=== PATIENT | male | born 1960 | race African-American/Black ===

== ENCOUNTER 2019-04-15 03:20 | Emergency (ER) | payer OTHER ==
[~2019-04-15] VITALS: Ht 182.9 cm; Wt 94.3 kg
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
[2019-04-15] MEDS ORDERED: KETOROLAC TROMETHAMINE INJ 60 MG/2 ML VIAL IM ONE ×2 (04:00→04:01)
[2019-04-15] MEDS ORDERED: IBUPROFEN 600 MG TABLET PO ONE ×2 (04:04→04:30)
--- NOTE | 2019-04-15 05:47 | NUR ---
Patient discharged to home in stable condition. rx and Written and verbal after care instructions given. Patient verbalizes understanding of instruction.
[2019-04-15 05:48] VITALS: BP 127/68
== END 2019-04-15 05:51 | disposition home or self-care (01) ==
LOC: ER 03:28
DX: M54.9 Dorsalgia, unspecified (principal); Z85.46 Personal history of malignant neoplasm of prostate; V49.49XA Driver injured in collision with other motor vehicles in traffic accident, initial encounter; Y93.89 Activity, other specified; Y92.413 State road as the place of occurrence of the external cause; Y99.8 Other external cause status
CPT/HCPCS: 72125-TC; 72128-TC; 72131-TC; J1885

== ENCOUNTER 2020-08-06 23:38 | Emergency (ER) | payer OTHER ==
[~2020-08-06] VITALS: Ht 182.9 cm; Wt 88.5 kg
[2020-08-06 23:38] VITALS: BP 144/86
[2020-08-06] MEDS ORDERED: CYCL10TA9 PO (23:46)
[2020-08-06] MEDS ORDERED: CYCLOBENZAPRINE 10 MG TABLET ONE (23:46)
[2020-08-06] MEDS ORDERED: CARI350T27 PO (23:52)
[2020-08-06] MEDS ORDERED: CARISOPRODOL 350 MG TABLET ONE (23:53)
[2020-08-07] MEDS ORDERED: CARISOPRODOL 350 MG TABLET PO ONE
[2020-08-07] MEDS ORDERED: CYCLOBENZAPRINE 10 MG TABLET PO ONE
--- NOTE | 2020-08-07 00:32 | NUR ---
PATIENT STATES HE WILL TAKE AN UBER TO GO HOME.
--- NOTE | 2020-08-07 00:32 | NUR ---
Patient discharged to home in stable condition. Written and verbal after care instructions given. Patient verbalizes understanding of instruction.
== END 2020-08-07 00:34 | disposition home or self-care (01) ==
LOC: ER 23:40
DX: M62.830 Muscle spasm of back (principal)

== ENCOUNTER 2020-11-01 20:14 | Emergency (ER) | payer OTHER ==
[~2020-11-01] VITALS: Ht 182.9 cm; Wt 93.0 kg
[2020-11-01 20:14] VITALS: BP 136/71
[~2020-11-01 20:14] MED LIST: CARI350T27 PO; CYCL10TA9 PO
--- NOTE | 2020-11-01 21:13 | NUR ---
RADIOLOGY AT BEDSIDE
[2020-11-01] MEDS ORDERED: NAPR500T6 PO (22:35)
== END 2020-11-01 22:47 | disposition home or self-care (01) ==
LOC: ER 20:17
DX: S43.201A Unspecified subluxation of right sternoclavicular joint, initial encounter (principal); Z85.46 Personal history of malignant neoplasm of prostate; Z79.899 Other long term (current) drug therapy; X58.XXXA Exposure to other specified factors, initial encounter; Y93.89 Activity, other specified; Y92.89 Other specified places as the place of occurrence of the external cause; Y99.8 Other external cause status
CPT/HCPCS: 73000-TC

== ENCOUNTER 2021-02-28 00:07 | Emergency (ER) | payer OTHER ==
[~2021-02-28] VITALS: Ht 182.9 cm; Wt 94.3 kg
[~2021-02-28 00:07] MED LIST changes: +NAPR500T6 PO
--- NOTE | 2021-02-28 00:36 | NUR ---
PT BIBSELF C/O LOWER BACK SPASM X ALL DAY. PT AAOX4 BREATHING EVENLY AND UNLABORED. PT ENDORSES TAKING IBUPROFEN AND PERCOCET WITHOUT RELIEF. PT ATTACHED TO MONITOR AND POX. MD AT BEDSIDE. PT GIVEN BLANKET AND CALL LIGHT WITHIN REACH
--- NOTE | 2021-02-28 00:55 | NUR ---
TAKEN TO CT
--- NOTE | 2021-02-28 01:08 | NUR ---
RETURNED FROM CT
[2021-02-28] MEDS ORDERED: oxyCODONE/APAP (5/325 MG) 1 UDTAB TABLET ONE (01:50)
[2021-02-28] MEDS ORDERED: oxyCODONE/APAP (5/325 MG) 1 UDTAB TABLET PO ONE (02:00)
--- NOTE | 2021-02-28 02:04 | NUR ---
DR RICE AT BED SIDE FOR D/C INSTRUATIONS
[2021-02-28] MEDS ORDERED: OXYC5CAP18 PO (02:11)
--- NOTE | 2021-02-28 02:16 | NUR ---
Patient discharged to home in stable condition. Written and verbal after care instructions given. Patient verbalizes understanding of instruction. Pt ambulatory with a steady gait.
[2021-02-28 02:27] VITALS: BP 135/88
[2021-02-28] MEDS ORDERED: CARI350T27 PO (02:35)
== END 2021-02-28 02:16 | disposition home or self-care (01) ==
LOC: ER 00:09
DX: M25.551 Pain in right hip (principal); C79.82 Secondary malignant neoplasm of genital organs; C79.51 Secondary malignant neoplasm of bone; Z79.899 Other long term (current) drug therapy
CPT/HCPCS: 72131-TC; 72192-TC

== ENCOUNTER 2021-05-28 04:02 | Emergency (ER) | payer OTHER ==
[~2021-05-28] VITALS: Ht 182.9 cm; Wt 95.3 kg
[~2021-05-28 04:02] MED LIST changes: +OXYC5CAP18 PO
--- NOTE | 2021-05-28 04:17 | NUR ---
PT SEEN BY LAW MCNAMARA
[2021-05-28 04:18] VITALS: BP 133/70
[2021-05-28] MEDS ORDERED: PRED50TA PO (04:22)
[2021-05-28] MEDS ORDERED: predniSONE 20 MG TABLET ONE (04:26)
[2021-05-28] MEDS ORDERED: predniSONE 50 MG TABLET PO ONE (04:30)
== END 2021-05-28 04:31 | disposition home or self-care (01) ==
LOC: ER 04:08
DX: L50.9 Urticaria, unspecified (principal); Z60.2 Problems related to living alone; Z79.899 Other long term (current) drug therapy
CPT/HCPCS: 99283; J7512

== ENCOUNTER 2021-09-25 15:04 | Emergency (ER) | payer OTHER ==
[~2021-09-25] VITALS: Ht 182.9 cm; Wt 100.2 kg
[~2021-09-25 15:04] MED LIST changes: +PRED50TA PO
[2021-09-25] MEDS ORDERED: KETOROLAC TROMETHAMINE INJ 30 MG/ML VIAL IV ONE (16:30)
--- NOTE | 2021-09-25 16:30 | NUR ---
AMBULATORY W/ STEADY GAIT. ASSISTED TO THE BATHROOM.
[2021-09-25 16:51] LABS: BASOPHILS % (AUTO) 0.4 % (0.0-2.0); HEMATOCRIT 34 % (39-51); HEMOGLOBIN 11.5 g/dL (13.5-17.5); LYMPHOCYTES # (AUTO) 0.4 K/uL (0.8-4.8); LYMPHOCYTES % (AUTO) 6.4 % (20.0-44.0); MEAN CORPUSCULAR HGB CONC 34 g/dl (31.0-36.0); MEAN CORPUSCULAR VOLUME 81 fL (80-96); MONOCYTES # (AUTO) 0.4 K/uL (0.1-1.30); MONOCYTES % (AUTO) 5.2 % (2.0-12.0); NEUTROPHILS # (AUTO) 6.1 K/uL (1.8-8.9); PLATELET COUNT (AUTO) 277 K/uL (150-450); RED BLOOD CELL COUNT(AUTO) 4.21 MIL/uL (4.5-6.0); WHITE BLOOD COUNT (AUTO) 6.9 K/uL (4.3-11.0)
--- NOTE | 2021-09-25 17:00 | NUR ---
ANAYA TORRES, AT BEDSIDE.
[2021-09-25 17:02] LABS: BILIRUBIN,URINE NEGATIVE (NEGATIVE); COLOR,URINE YELLOW (YELLOW); LEUKOCYTE ESTERASE ,URINE NEGATIVE (NEGATIVE); NITRITE, URINE NEGATIVE (NEGATIVE); PH,URINE 6.5 (5.0-8.0); PROTEIN,URINE NEGATIVE (NEGATIVE); UGLUCOSE NEGATIVE (NEGATIVE); UROBILINOGEN,URINE 0.2 EU/dL (0.2)
--- NOTE | 2021-09-25 17:18 | NUR ---
WARP PLACER AT BEDSIDE FOR US OF RLE.
[2021-09-25 17:23] LABS: ALBUMIN 3.6 g/dL (3.4-5.0); BILIRUBIN,DIRECT 0.1 mg/dL (0.0-0.2); BILIRUBIN,TOTAL 0.4 mg/dL (0.2-1.0); CALCIUM, SERUM 8.3 mg/dL (8.5-10.1); POTASSIUM 4.3 mmol/L (3.5-5.1); TOTAL PROTEIN, SERUM 6.6 g/dL (6.4-8.2)
[2021-09-25] MEDS ORDERED: KETOROLAC TROMETHAMINE 15 MG/ML VIAL ONE (17:31)
--- NOTE | 2021-09-25 17:36 | NUR ---
COVID ANTIGEN SWAB COLLECTED AND SENT TO LAB
--- NOTE | 2021-09-25 17:40 | NUR ---
LAC #20; TORADOL IV GIVEN TO PT.
--- NOTE | 2021-09-25 19:18 | NUR ---
Patient discharged to home in stable condition. Written and verbal after care instructions given. Patient verbalizes understanding of instruction. IV line removed and PT ambulatory with steady gait.
[2021-09-25 19:20] VITALS: BP 119/68
== END 2021-09-25 19:20 | disposition home or self-care (01) ==
LOC: ER 15:09
DX: M79.89 Other specified soft tissue disorders (principal); M25.551 Pain in right hip; C61 Malignant neoplasm of prostate; C79.51 Secondary malignant neoplasm of bone; E83.51 Hypocalcemia; D64.9 Anemia, unspecified; R05.9 Cough, unspecified; Z20.822 Contact with and (suspected) exposure to COVID-19; D68.59 Other primary thrombophilia; Z79.899 Other long term (current) drug therapy; Z92.3 Personal history of irradiation; Z83.2 Family history of diseases of the blood and blood-forming organs and certain disorders involving the immune mechanism
CPT/HCPCS: 36415; 71045; 80048; 80076; 81003; 85025; 85730; 87426; 93971; 96374; 99285; C9803; J1885

== ENCOUNTER 2022-08-31 11:25 | Emergency (ER) | payer OTHER ==
[~2022-08-31] VITALS: Ht 182.9 cm; Wt 101.2 kg
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
--- NOTE | 2022-08-31 11:55 | NUR ---
X-RAY TECH AT BEDSIDE
--- NOTE | 2022-08-31 12:10 | NUR ---
BLOOD DRAWN AND SENT TO LAB
[2022-08-31 12:18] LABS: BASOPHILS % (AUTO) 0.5 % (0.0-2.0); EOSINOPHILS % (AUTO) 0.1 % (0.0-6.0); HEMATOCRIT 29 % (39-51); HEMOGLOBIN 9.5 g/dL (13.5-17.5); LYMPHOCYTES # (AUTO) 0.4 K/uL (0.8-4.8); LYMPHOCYTES % (AUTO) 4.2 % (20.0-44.0); MEAN CORPUSCULAR HGB CONC 33 g/dl (31.0-36.0); MEAN CORPUSCULAR VOLUME 80 fL (80-96); MONOCYTES # (AUTO) 0.2 K/uL (0.1-1.30); MONOCYTES % (AUTO) 2.4 % (2.0-12.0); NEUTROPHILS # (AUTO) 9.8 K/uL (1.8-8.9); NEUTROPHILS % (AUTO) 92.8 % (43.0-81.0); PLATELET COUNT (AUTO) 407 K/uL (150-450); WHITE BLOOD COUNT (AUTO) 10.5 K/uL (4.3-11.0)
[2022-08-31 12:27] LABS: CALCIUM, SERUM 8.4 mg/dL (8.5-10.1); CARBON DIOXIDE 28 mmol/L (21-32); CHLORIDE 105 mmol/L (98-107); GLUCOSE 112 mg/dL (74-106); POTASSIUM 4.6 mmol/L (3.5-5.1); SODIUM SERUM 141 mmol/L (136-145); UREA NITROGEN, BLOOD 16 mg/dL (7-18)
[2022-08-31 12:41] LABS: ALANINE AMINOTRANSFERASE 66 U/L (12-78); ALBUMIN 2.9 g/dL (3.4-5.0); ALKALINE PHOSPHATASE 71 U/L (46-116); ASPARTATE AMINOTRANSFERASE 50 U/L (15-37); BILIRUBIN,DIRECT 0.1 mg/dL (0.0-0.2); BILIRUBIN,TOTAL 0.4 mg/dL (0.2-1.0); TOTAL PROTEIN, SERUM 6.6 g/dL (6.4-8.2)
[2022-08-31] MEDS ORDERED: CT SWABBABLE VALVE TRANS SET 1 EA INFUS.SET MC ONE (13:05)
[2022-08-31] MEDS ORDERED: IV NS 0.9% 250 ML IV ONE (13:05)
[2022-08-31] MEDS ORDERED: IOHEXOL-350 100 ML VIAL IV ONE (13:05)
--- NOTE | 2022-08-31 14:25 | NUR ---
IV removed. Catheter intact and site benign. Pressure and 4x4 applied to site. No bleeding noted.Patient discharged to home in stable condition. Written and verbal after care instructions given. Patient verbalizes understanding of instruction.
[2022-08-31 14:53] VITALS: BP 112/70
== END 2022-08-31 14:25 | disposition home or self-care (01) ==
LOC: ER 11:30
DX: R07.9 Chest pain, unspecified (principal); Z85.46 Personal history of malignant neoplasm of prostate; Z60.2 Problems related to living alone; Z79.899 Other long term (current) drug therapy
CPT/HCPCS: 99285; 71275; 71045; 93005 ×2; 85025; 80048; 80076; 36415; 84484; 83880; J7050; Q9967

== ENCOUNTER 2022-09-16 02:22 | Emergency (ER) | payer OTHER ==
[~2022-09-16] VITALS: Ht 182.9 cm; Wt 102.1 kg
--- NOTE | 2022-09-16 02:40 | NUR ---
c/o r leg pain noticed bruising x 1 week, on eliquis 5mg, 8/10 ps
[2022-09-16 03:18] LABS: BASOPHILS # (AUTO) 0.1 K/uL (0.0-0.2); BASOPHILS % (AUTO) 1.3 % (0.0-2.0); EOSINOPHILS % (AUTO) 1.1 % (0.0-6.0); HEMATOCRIT 32 % (39-51); HEMOGLOBIN 10.1 g/dL (13.5-17.5); MEAN CORPUSCULAR HGB CONC 31 g/dl (31.0-36.0); MEAN CORPUSCULAR VOLUME 80 fL (80-96); MONOCYTES # (AUTO) 0.5 K/uL (0.1-1.30); MONOCYTES % (AUTO) 9.3 % (2.0-12.0); NEUTROPHILS # (AUTO) 3.4 K/uL (1.8-8.9); NEUTROPHILS % (AUTO) 68.3 % (43.0-81.0); PLATELET COUNT (AUTO) 433 K/uL (150-450); RED BLOOD CELL COUNT(AUTO) 4.04 MIL/uL (4.5-6.0)
[2022-09-16 03:35] LABS: BILIRUBIN,DIRECT 0.1 mg/dL (0.0-0.2); BILIRUBIN,TOTAL 0.3 mg/dL (0.2-1.0); CALCIUM, SERUM 8.6 mg/dL (8.5-10.1); POTASSIUM 3.8 mmol/L (3.5-5.1); TOTAL PROTEIN, SERUM 6.4 g/dL (6.4-8.2)
--- NOTE | 2022-09-16 03:48 | NUR ---
PT TO CT VIA [facility].
[2022-09-16] MEDS ORDERED: IV NS 0.9% 250 ML IV ONE (04:03)
[2022-09-16] MEDS ORDERED: CT SWABBABLE VALVE TRANS SET 1 EA INFUS.SET MC ONE (04:03)
[2022-09-16] MEDS ORDERED: IOHEXOL-300 100 ML VIAL IV ONE (04:03)
[2022-09-16] MEDS ORDERED: CLINDAMYCIN HCL 150 MG CAPSULE PO ONE (08:00)
[2022-09-16] MEDS ORDERED: CLIN300C12 PO (08:12)
[2022-09-16] MEDS ORDERED: CLINDAMYCIN HCL 150 MG CAPSULE ONE (08:22)
[2022-09-16 08:40] VITALS: BP 132/75
== END 2022-09-16 08:43 | disposition home or self-care (01) ==
LOC: ER 02:30
DX: M79.89 Other specified soft tissue disorders (principal); Z60.2 Problems related to living alone; Z79.899 Other long term (current) drug therapy; Z85.46 Personal history of malignant neoplasm of prostate
CPT/HCPCS: 99284; 73702; 93971; 93926; 85025; 80048; 87040 ×2; 83605; 83690; 80076; 36415; 85730; J7050; Q9967